=== PATIENT | female | born 1935 | race Caucasian/White ===

== ENCOUNTER 2017-04-25 15:12 | Emergency (ER) | payer MEDICAID, OTHER ==
[2017-04-25 15:26] VITALS: BMI 24.7
--- NOTE | 2017-04-25 17:22 | DR.GENAD ---
HPI - PCP Primary Care Physician: HUGO TORRES - Complaint/Symptoms Chief Complaint Doctors Comments: Patient states she fell about five hours ago at home while talking to family member she passed out and hit her head on a table. States is taking Eliquis and the family was worried about a bleed. states she had a headache, blurred vision with dizziness initially but it has gotten better. states she had an episode of vomiting but they gave her a pill for her nerves and she thinks that is what made her throw up. She denies chest pain. SoB or her heart fluttering. states she is always in atrial fibrillation. Chief Complaint:: FELL AROUND 1230 AND KEEP HAVING DIZZY SPELLS. PATIENT HAS KNOT ABOVE RIGHT EYE. PATIENT STARTED HAVING NAUSEA AND VOMITING ON THE WAY TO THE HOSPITAL. - Nurses notes reviewed Nurses Notes Review: Yes - Source History Provided: Patient, Family Member - Mode of Arrival Mode of Arrival: Wheelchair - Timing Onset of Chief Complaint: 04/25/17 Came on: Gradually - Duration Duration: Intermittent How lon Duration: Hours - Location Location: right forehead - Severity Severity: Mild - Modifying Factors Worsens:: nothing Improves:: nothing PMH - PMH Past Medical History: Yes Past Medical History: Anxiety, Arthritis, CHF, Coronary Artery Disease, Depression, Diabetes, Dyslipidemia, Hypertension, [place] Past Surgical History: Yes Surgical History: Other - Family History History of Family Medical Conditions: Yes Family Medical History: Diabetes Mellitus, Cancer, [place], Sudden Cardiac , Hypertension - Social History Does patient currently use any type of tobacco product: No Have you used tobacco products in the last 12 months: No Type of Tobacco Use: None Does any household member use tobacco: No Alcohol Use: None Do you use any recreational Drugs:: No Lives With: Family Lives Where: Home - infectious screening In the last 2 months have you had wt loss of >10#?: NO Have you had fever, night sweats or hemotysis?: No Have you traveled outside the country in the last 6 months?: No Isolation: Standard ROS - Review of Systems Constitutional: No Symptoms Reported. negative: See HPI, Chills, Diaphoresis, Fever, Malaise, Weakness, Irritable, Fatigue, Loss of Appetite, Other Eyes: No Symptoms Reported ENTM: No Symptoms Reported Respiratoy: No Symptoms Reported. negative: See HPI, Productive Cough, Non- Productive Cough, Moist Cough, Dry Cough, Hacking Cough, Barking Cough, Brassy Cough, Orthopnea, Short of Breath, Stridor, Wheezing, Hemoptysis, Other Cardiovascular: No Symptoms Reported. negative: See HPI, Chest Pain, Edema, Palpitations, Syncope, Cyanosis, Skin Mottling, Other Gastrointestinal/Abdominal: Nausea, Vomiting. negative: No Symptoms Reported, See HPI, Abdominal Pain, Constipation, Diarrhea, Food Intolerance, Other Genitourinary: No Symptoms Reported Neurological: No Symptoms Reported, Headache, Dizziness. negative: See HPI, Anxiety, Depressed, Emotional Problems, Numbness, Paresthesia, Pre-existing Deficit, Seizure, Tingling, Tremors, Weakness, Problems Walking, Speech Problem , Other Musculoskeletal: No Symptoms Reported Integumentary: No Symptoms Reported Hematologic/Lymphatic: No Symptoms Reported Endocrine: No Symptoms Reported Psychiatric: No Symptoms Reported PE - Vital Signs Vitals: Pulse Rate [Left Brachial] 64 Pulse Rate 63 Respiratory Rate 20 Blood Pressure [Right Arm] 176/72 Blood Pressure 215/95 O2 Sat by Pulse Oximetry 100 - General Limitations: No Limitations General Appearance: Alert, In No Apparent Distress - Head Head Exam: Normal Inspection, Normocephalic. negative: Atraumatic (right forehead with 6 cm hematoma) - Eyes Eye exam: Normal Appearance, PERRL, EOMI. negative: Scleral Icterus, Conjunctival Injection, Nystagmus, Miosis, Mydrasis, Periorbital Swelling, Periorbital Tenderness, Other - ENT ENT Exam: Normal Exam, Normal Oropharynx, Normal External Ear Exam, Mucous Membranes Moist, TM's Normal Bilaterally External Ear Exam: Normal External Inspection TM/Canal Exam: Bilateral Normal Nose Exam: Normal Nose Exam Mouth Exam: Normal Inspection Throat Exam: Normal Inspection - Neck Neck Exam: Normal Inspection, Full ROM, Trachea Midline - Chest Chest Inspection: Normal Inspection, Symmetric Chest Wall Rise - Respiratory Respiratory Exam: Normal Lung Sounds Bilat Respiratory Exam: Bilateral Clear to Auscultation - Cardiovascular Cardiovascular Exam: Regular Rate, Normal Rhythm, Normal Heart Sounds - Abdominal Exam Abdominal Exam: Normal Inspection, Normal Bowel Sounds, Soft. negative: Distention, Tenderness, Guarding, Rebound, Rigidity, Dimnished Bowel Sounds, Hyperactive Bowel Sounds, Hypoactive Bowel Sounds, Organomegaly, Trauma, Incision, Ascites, Mass, Bruit, Pulsatile Mass, Hernia, Other Abdominal Tenderness: negative: RUQ, RLQ, LUQ, LLQ, Epigastrium, Suprapubic, Diffuse, Mild, Moderate, Severe, Other - Extremities Extremities Exam: Normal Inspection, Full ROM, Tenderness (right hand with abrasion), Normal Capillary Refill - Back Back Exam: Normal Inspection, Full ROM. negative: Tenderness, (R) CVA Tenderness, (L) CVA Tenderness, Muscle Spasm, Paraspinal Tenderness, Vertebral Tenderness, Rashes, (R) Sciatic Notch Tenderness, (L) Sciatic Notch Tendern, (R ) Straight Leg Raise, (L) Straight Leg Raise, Other - Neurologic Neurological Exam: Alert, Oriented X3, CN II-XII Intact, Reflexes Normal. negative: Normal Gait (gait not tested) - Psychiatric Psychiatric Exam: Normal Affect, Normal Mood - Skin Skin Exam: Warm, Dry, Intact, Normal Color ROR - Labs Reviewed Laboratory Results Reviewed?: Yes (all x-ray results reviewed and discussed with patient) - XRAY XRAY Interpreted by: Radiologist (CT brain: Atrophy and nonspecific white matter changes. Right frontal sc) XRAY Findings: CT head: right frontal scalp contusion - Diagnosis Discharge Problem: Hematoma, right frontal scalp contusion Contusion of head Qualifiers: Encounter type: initial encounter Laterality: right - Discharge Plan Disposition: 01 HOME, SELF-CARE Condition: Stable - Follow ups/Referrals Follow ups/Referrals: HUGO TORRES [Primary Care Provider] - 3 days - Instructions Instructions: Head Injury, Adult, [id number], Hematoma
--- NOTE | 2017-04-25 17:43 | CT ---
HISTORY: Fall, closed head injury, vomiting Study: CT brain without contrast Comparison: None Technique: Multiple axial images of the brain were obtained from the skull base to the vertex without administra tion of IV contrast. Dose reduction techniques including Automated Exposure Control (AEC) and adjust ment of mA and kV were utilized. Findings: There is moderate to advanced atrophy and nonspecific white matter hypoattenuation likely related to microvascular ischemic changes. No evidence of acute hemorrhage, midline shift, mass effect or abnor mal extra-axial fluid collection. The ventricular system is symmetric and nondilated. There is a ri ght frontal scalp contusion. No calvarial fracture identified. There is right maxillary sinus mucosal thickening. The remaining sinuses are clear. IMPRESSION: 1. Atrophy and nonspecific white matter changes as described without acute intracranial abnormality. 2. Right frontal scalp contusion. Reported By:
[2017-04-25 18:10] VITALS: BP 152/59
== END 2017-04-25 18:11 | disposition home or self-care (01) ==
LOC: ER 15:20
DX: S00.93XA Contusion of unspecified part of head, initial encounter (principal); S00.03XA Contusion of scalp, initial encounter; W19.XXXA Unspecified fall, initial encounter; Y92.009 Unspecified place in unspecified non-institutional (private) residence as the place of occurrence of the external cause
CPT/HCPCS: 70450; 99282; 99283